=== PATIENT | female | born 1940 | race Caucasian/White ===

== ENCOUNTER 2017-06-09 08:00 | Inpatient (IN) | payer OTHER ==
[2017-06-13] MEDS ORDERED: CELECOXIB 200 MG CAPSULE PO ONE (09:15)
[2017-06-13] MEDS ORDERED: TRANEXAMIC ACID 1000 MG/10 ML VIAL IVPUSH ONE (09:15)
[2017-06-13] MEDS ORDERED: CEFAZOLIN 1 GM/D5W 50 ML IVPB ONE (09:15)
[2017-06-13] MEDS ORDERED: ROPIVICAINE 0.2%/MORPH PF/KETOROLAC - 51ML DISP.SYRINGE IA ONE ×2 (09:15→13:22)
[2017-06-13] MEDS ORDERED: GABAPENTIN 300 MG CAPSULE (FP) PO ONE (09:15)
[2017-06-13] MEDS ORDERED: PANTOPRAZOLE 40 MG TABLET (FP) PO ONE (09:15)
[2017-06-13] MEDS ORDERED: oxyCODONE HCL 10 MG SUSTAINED ACTING TABLET PO ONE (09:15)
[2017-06-13 10:05] VITALS: BMI 22.6
[2017-06-13] MEDS ORDERED: MIDAZOLAM HCL 2 MG/2 ML SINGLE DOSE VIAL ONE ×3 (11:53→13:46)
[2017-06-13] MEDS ORDERED: ROPIVACAINE HCL 0.5% 30ML VIAL ONE (11:54)
[2017-06-13] MEDS ORDERED: DEXAMETHASONE SOD PHOSPHATE/PF 10 MG/ML SDV ONE (11:54)
[2017-06-13] MEDS ORDERED: BUPIVACAINE HCL/PF 0.5% (5MG/ML) 10 ML VIAL ONE (12:55)
[2017-06-13] MEDS ORDERED: SUCCINYLCHOLINE CHLORIDE 200 MG/10 ML VIAL ONE (12:59)
[2017-06-13] MEDS ORDERED: VANCOMYCIN 1,000 MG VIAL (RESTRICTED TO ID ONLY) ONE (13:22)
[2017-06-13] MEDS ORDERED: TRANEXAMIC ACID 1000 MG/10 ML VIAL ONE ×2 (13:22→15:55)
[2017-06-13] MEDS ORDERED: ceFAZolin SODIUM 1 GM VIAL ONE ×2 (13:40→15:20)
[2017-06-13] MEDS ORDERED: ONDANSETRON 4 MG/2 ML VIAL ONE (16:30)
[2017-06-13] MEDS ORDERED: oxyCODONE HCL 5 MG TABLET PO PRN ×2 (16:45→17:01)
[2017-06-13] MEDS ORDERED: ONDANSETRON 4 MG/2 ML VIAL IVPUSH PRN (16:45)
[2017-06-13] MEDS ORDERED: LACTATED RINGERS SOLUTION 1,000 ML IV SCH ×2 (16:45→17:00)
--- NOTE | 2017-06-13 16:45 | HP ---
Admitting History and Physical - Admission Chief Complaint: left knee OA History of Present Illness: 76yo female with severe left knee OA. Failed conservative mgmt. Here for elective TKA - Past Medical History Cardiovascular: Yes: HTN ...: No - Smoking History Smoking history: Former smoker Have you smoked in the past 12 months: No If you are a former smoker, when did you quit?: 1989 - Alcohol/Substance Use Hx Alcohol Use: Yes (GLASS WINE DAILY) Home Medications - Allergies Allergies/Adverse Reactions: Allergies Allergy/AdvReac Type Severity Reaction Status Date / Time Penicillins Allergy Severe Rash Verified 06/01/17 12:04 - Home Medications Home Medications: Ambulatory Orders Aspirin [Aspirin EC] 81 mg PO DAILY 06/01/17 Diltiazem HCl [Diltiazem 24Hr Cd] 120 mg PO HS 06/01/17 Hydrochlorothiazide [Hctz -] 12.5 mg PO DAILY 06/01/17 Umeclidinium [place] [Incruse Ellipta] 62.5 mcg IH DAILY 06/01/17 Physical Examination Vital Signs: Vital Signs Temperature 98.1 F 06/13/17 09:55 Pulse Rate 80 06/13/17 09:55 Respiratory Rate 20 06/13/17 09:55 Blood Pressure 159/99 06/13/17 09:55 O2 Sat by Pulse Oximetry (%) Constitutional: Yes: Well Nourished, No Distress Eyes: Yes: WNL, Conjunctiva Clear, EOM Intact HENT: Yes: WNL, Atraumatic, Normocephalic Neck: Yes: WNL Cardiovascular: Yes: WNL, Regular Rate and Rhythm Respiratory: Yes: WNL, Regular Gastrointestinal: Yes: WNL, Soft ...Rectal Exam: Yes: Deferred Extremities: Yes: WNL Edema: No Peripheral Pulses WNL: Yes Integumentary: Yes: WNL Neurological: Yes: WNL, Alert, Oriented ...Motor Strength: WNL Psychiatric: Yes: WNL, Alert, Oriented Labs: Reviewed in chart Imaging - Results X-ray: Image Reviewed Problem List - Problems (1) Osteoarthritis of left knee Code(s): M17.12 - UNILATERAL PRIMARY OSTEOARTHRITIS, LEFT KNEE Qualifiers: Osteoarthritis type: primary Qualified Code(s): M17.12 - Unilateral primary osteoarthritis, left knee; M17.12 - Unilateral primary osteoarthritis, left knee Assessment/Plan 76yo F with severe left knee OA for L TKA
[2017-06-13] MEDS: ACETAMINOPHEN 1000 MG/100 ML VIAL (NON FORMULARY) IVPB ONE (16:46)
--- NOTE | 2017-06-13 16:46 | OP ---
Operative Note - Note: Operative Date: 06/13/17 Pre-Operative Diagnosis: left knee OA Operation: left TKA Post-Operative Diagnosis: Same as Pre-op Surgeon: Angel Mahoney Wash Driller Helper: Oliver Stack Anesthesia: Spinal Estimated Blood Loss (mls): 100
[2017-06-13] MEDS ORDERED: ONDANSETRON 4 MG/2 ML VIAL IVPB PRN (16:48)
[2017-06-13] MEDS ORDERED: MAGNESIUM HYDROX 2400MG/30ML ORAL SUSPENSION 30 ML CUP PO PRN (16:48)
[2017-06-13] MEDS ORDERED: ACETAMINOPHEN INJECTION 100 ML IVPB ONE (17:00)
[2017-06-13] MEDS ORDERED: traMADol HCL 50 MG TABLET ONE (17:16)
[2017-06-13] MEDS ORDERED: KETOROLAC TROMETHAMINE 30 MG/1 ML VIAL ONE (17:17)
[2017-06-13] MEDS: traMADol HCL 50 MG TABLET PO SCH ×2 (17:19→22:45)
[2017-06-13] MEDS ORDERED: CEFAZOLIN 1 GM/D5W 50 ML IVPB SCH (18:00)
[2017-06-13] MEDS: SENNOSIDES/DOCUSATE COMBO (SENNA PLUS) TABLET (UD) PO SCH (21:56)
[2017-06-13] MEDS: ASCORBIC ACID 500 MG TABLET (FP) PO SCH (21:57)
[2017-06-13] MEDS: GABAPENTIN 300 MG CAPSULE (FP) PO SCH (21:57)
[2017-06-13] MEDS: ACETAMINOPHEN 325 MG TABLET (FP) PO SCH (21:57)
[2017-06-13] MEDS: oxyCODONE HCL 10 MG SUSTAINED ACTING TABLET PO SCH (21:59)
[2017-06-13] MEDS: KETOROLAC TROMETHAMINE 30 MG/1 ML VIAL IVPUSH SCH (22:44)
[2017-06-14] MEDS ORDERED: DEXAMETHASONE SOD PHOSPHATE 10 MG/1 ML VIAL IVPB ONE (01:00)
[2017-06-14] MEDS: KETOROLAC TROMETHAMINE 30 MG/1 ML VIAL IVPUSH SCH ×2 (06:20→11:27)
[2017-06-14] MEDS: traMADol HCL 50 MG TABLET PO SCH ×4 (06:20→23:34)
[2017-06-14] MEDS: ACETAMINOPHEN 325 MG TABLET (FP) PO SCH ×4 (06:21→23:35)
[2017-06-14 07:41] LABS: MCH 30.8 pg (25.7-33.7); MCHC 33.5 g/dl (32.0-36.0); MEAN CELL VOLUME 91.7 fl (80-96); MEAN PLT VOLUME 8.6 fl (7.5-11.1); PLATELET COUNT 245 K/MM3 (134-434); RDW 13.8 % (11.6-15.6); WHITE BLOOD COUNT 9.9 K/mm3 (4.0-10.8)
[2017-06-14 08:00] LABS: ANION GAP 9 (8-16); CALCIUM 9.6 mg/dl (8.4-10.2); CO2 28 mmol/L (22-28); CREATININE 0.9 mg/dl (0.6-1.3); GLUCOSE,RANDOM 148 mg/dl (74-106)
[2017-06-14] MEDS: ACETAMINOPHEN 1000 MG/100 ML VIAL (NON FORMULARY) IVPB ONE (08:22)
[2017-06-14] MEDS: ASPIRIN 325 MG TABLET PO SCH (08:59)
[2017-06-14] MEDS: PANTOPRAZOLE 40 MG TABLET (FP) PO SCH (09:04)
[2017-06-14] MEDS: SENNOSIDES/DOCUSATE COMBO (SENNA PLUS) TABLET (UD) PO SCH ×2 (09:04→21:15)
[2017-06-14] MEDS: oxyCODONE HCL 10 MG SUSTAINED ACTING TABLET PO SCH ×2 (09:04→21:15)
[2017-06-14] MEDS: GABAPENTIN 300 MG CAPSULE (FP) PO SCH ×2 (09:05→21:15)
[2017-06-14] MEDS: MULTIVITAMINS (DAILY MVI) TABLET (FP) PO SCH (09:05)
[2017-06-14] MEDS: HYDROCHLOROTHIAZIDE 12.5 MG CAPSULE (FP) PO SCH (09:05)
[2017-06-14] MEDS: CELECOXIB 200 MG CAPSULE PO SCH ×2 (09:05→21:16)
[2017-06-14] MEDS: ASCORBIC ACID 500 MG TABLET (FP) PO SCH ×2 (09:05→21:17)
[2017-06-14] MEDS ORDERED: PATIENT'S OWN MEDICATION (NON-FORMULARY) (Umeclidinium Bromide [Incruse Ellipta] 62.5 MCG) IH SCH (10:00)
--- NOTE | 2017-06-14 18:08 | PN ---
Progress Note (short form) - Note Progress Note: Pt seen and examined. Doing well. AVSS Selected Entries 06/14/17 06/14/17 06:00 07:52 Temperature 98 F Pulse Rate 71 Respiratory 18 Rate Blood Pressure 115/78 O2 Sat by Pulse 96 Oximetry (%) Oxygen Delivery Room Air Method Laboratory Tests 06/14/17 06/14/17 07:20 07:20 WBC 9.9 Hgb 14.4 Hct 42.8 Plt Count 245 Sodium 135 L Potassium 3.8 Chloride 98 Carbon Dioxide 28 Anion Gap 9 BUN 22 H Creatinine 0.9 Random Glucose 148 H Calcium 9.6 Gen: NAD LLE: c/d/i, NVID A/P 76yo female POD#1 s/p L TKA 1. PT/OOB 2. Plan for d/c home tomorrow. Problem List - Problems (1) Osteoarthritis of left knee Code(s): M17.12 - UNILATERAL PRIMARY OSTEOARTHRITIS, LEFT KNEE Qualifiers: Osteoarthritis type: primary Qualified Code(s): M17.12 - Unilateral primary osteoarthritis, left knee; M17.12 - Unilateral primary osteoarthritis, left knee
[2017-06-14] MEDS: MAG HYDROX/AL HYDROX/SIMETH 30 ML UNIT-DOSE CUP PO PRN (21:42)
[2017-06-15] MEDS: ACETAMINOPHEN 325 MG TABLET (FP) PO SCH ×4 (05:00→23:24)
[2017-06-15] MEDS: traMADol HCL 50 MG TABLET PO SCH ×5 (05:42→23:37)
[2017-06-15] MEDS: ASPIRIN 325 MG TABLET PO SCH (08:17)
[2017-06-15 08:28] LABS: MCH 31.1 pg (25.7-33.7); MCHC 33.8 g/dl (32.0-36.0); MEAN CELL VOLUME 92.1 fl (80-96); MEAN PLT VOLUME 8.6 fl (7.5-11.1); PLATELET COUNT 257 K/MM3 (134-434); RDW 13.4 % (11.6-15.6); WHITE BLOOD COUNT 15.6 K/mm3 (4.0-10.8)
[2017-06-15 09:02] LABS: ANION GAP 10 (8-16); CALCIUM 9.4 mg/dl (8.4-10.2); CO2 27 mmol/L (22-28); CREATININE 1.3 mg/dl (0.6-1.3); GLUCOSE,RANDOM 111 mg/dl (74-106)
[2017-06-15] MEDS ORDERED: PT OWN MED DRAWER 7, Y5N ONE (10:51)
[2017-06-15] MEDS: oxyCODONE HCL 10 MG SUSTAINED ACTING TABLET PO SCH ×2 (11:00→22:00)
[2017-06-15] MEDS: TIOTROPIUM BROMIDE 18 MCG/INH (DEVICE W/ 5 CAPSULES) IH SCH (11:00)
[2017-06-15] MEDS: SENNOSIDES/DOCUSATE COMBO (SENNA PLUS) TABLET (UD) PO SCH ×2 (11:00→22:05)
[2017-06-15] MEDS: PANTOPRAZOLE 40 MG TABLET (FP) PO SCH (11:00)
[2017-06-15] MEDS: GABAPENTIN 300 MG CAPSULE (FP) PO SCH ×2 (11:19→22:04)
[2017-06-15] MEDS: HYDROCHLOROTHIAZIDE 12.5 MG CAPSULE (FP) PO SCH (11:20)
[2017-06-15] MEDS: CELECOXIB 200 MG CAPSULE PO SCH ×3 (11:20→23:59)
[2017-06-15] MEDS: MULTIVITAMINS (DAILY MVI) TABLET (FP) PO SCH (11:21)
[2017-06-15] MEDS: ASCORBIC ACID 500 MG TABLET (FP) PO SCH ×2 (11:21→22:05)
--- NOTE | 2017-06-15 16:02 | PATH ---
Surgical Pathology Report Patient Name: VIANEY CHENG Med. Rec. #: [id number] /Age/Gender: 1940 (Age: 76) / F Account: [id number] Location: [facility] MED-SURG Taken: 06/14/2017 Received: 06/14/2017 Reported: 06/15/2017 Physicians: Angel Mahoney M.D. Specimen(s) Received BONE LEFT KNEE Clinical History Left knee osteoarthritis Final Diagnosis BONE, LEFT KNEE, TOTAL KNEE REPLACEMENT: DEGENERATIVE JOINT DISEASE. Electronically Signed Brenda Castillo M.D. Gross Description Received in formalin labeled "bone left knee," is a 10.5 x 9.5 x 2.0 cm aggregate of multiple tobar, irregular portions of bone and soft tissue. The tibial plateau measures 7.5 x 5.0 x 1.3 cm. There is a 3.3 cm greatest dimension area of eburnation present. The remaining articular surfaces are tobar-yellow and focally granular. The underlying trabecular bone is yellow and hard. Refinery Operator Alkylation sections are submitted in one cassette, following decalcification. /06/14/2017 [facility]06/14/2017
[2017-06-15] MEDS: MAG HYDROX/AL HYDROX/SIMETH 30 ML UNIT-DOSE CUP PO PRN (17:00)
[2017-06-15 18:12] LABS: CPK 195 IU/L (26-192)
[2017-06-15 18:41] LABS: TROPONIN I (DFP) < 0.03 ng/ml (0.03-0.50)
[2017-06-15] MEDS ORDERED: PANTOPRAZOLE SODIUM 40 MG in SODIUM CHLORIDE 100 ML IVPB ONE (19:09)
[2017-06-15] MEDS ORDERED: PANTOPRAZOLE SODIUM 100 ML IVPB ONE (19:45)
--- NOTE | 2017-06-15 23:35 | PN ---
Progress Note (short form) - Note Progress Note: Pt seen and examined. Events noted. Doing well. Seems like heartburn and not any cardiac condition. AVSS Selected Entries 06/14/17 06/14/17 06:00 07:52 Temperature 98 F Pulse Rate 71 Respiratory 18 Rate Blood Pressure 115/78 O2 Sat by Pulse 96 Oximetry (%) Oxygen Delivery Room Air Method Laboratory Tests 06/14/17 06/14/17 07:20 07:20 WBC 9.9 Hgb 14.4 Hct 42.8 Plt Count 245 Sodium 135 L Potassium 3.8 Chloride 98 Carbon Dioxide 28 Anion Gap 9 BUN 22 H Creatinine 0.9 Random Glucose 148 H Calcium 9.6 Gen: NAD LLE: c/d/i, NVID A/P 76yo female POD#2 s/p L TKA 1. PT/OOB 2. 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 We discussed that SNF would be safer for her, for a few days, and she agrees. She wishes to go to [facility] if there are beds available. Problem List - Problems (1) Osteoarthritis of left knee Code(s): M17.12 - UNILATERAL PRIMARY OSTEOARTHRITIS, LEFT KNEE Qualifiers: Osteoarthritis type: primary Qualified Code(s): M17.12 - Unilateral primary osteoarthritis, left knee; M17.12 - Unilateral primary osteoarthritis, left knee
[2017-06-16] MEDS: ACETAMINOPHEN 325 MG TABLET (FP) PO SCH ×2 (04:46→11:00)
[2017-06-16] MEDS: traMADol HCL 50 MG TABLET PO SCH ×2 (04:46→12:14)
--- NOTE | 2017-06-16 07:22 | CONSULT ---
Consultation: REQUESTING PROVIDER: Denzel CONSULT REQUEST: We have been asked to medically evaluate this patient for GERD. HISTORY OF PRESENT ILLNESS:Patient is a 76y/o female with a past medical history of NIDDM, HTN, and COPD. Patient is s/p left TKR, 06/13/17, Dr Mahoney. REVIEW OF SYSTEMS: CONSTITUTIONAL: Absent: fever, chills, diaphoresis, generalized weakness, malaise, loss of appetite, weight change HEENT: Absent: rhinorrhea, nasal congestion, throat pain, throat swelling, difficulty swallowing, mouth swelling, ear pain, eye pain, visual changes CARDIOVASCULAR: Absent: chest pain, syncope, palpitations, irregular heart rate, lightheadedness , peripheral edema RESPIRATORY: Absent: cough, shortness of breath, dyspnea with exertion, orthopnea, wheezing, stridor, hemoptysis GASTROINTESTINAL: Absent: abdominal pain, abdominal distension, nausea, vomiting, diarrhea, constipation, melena, hematochezia GENITOURINARY: Absent: dysuria, frequency, urgency, hesitancy, hematuria, flank pain, genital pain MUSCULOSKELETAL: Absent: myalgia, arthralgia, joint swelling, back pain, neck pain SKIN: Absent: rash, itching, pallor HEMATOLOGIC/IMMUNOLOGIC: Absent: easy bleeding, easy bruising, lymphadenopathy, frequent infections ENDOCRINE: Absent: unexplained weight gain, unexplained weight loss, heat intolerance, cold intolerance NEUROLOGIC: Absent: headache, focal weakness or paresthesias, dizziness, unsteady gait, seizure, mental status changes, bladder or bowel incontinence PSYCHIATRIC: Absent: anxiety, depression, suicidal or homicidal ideation, hallucinations. PHYSICAL EXAMINATION Vital Signs - 24 hr 06/15/17 06/15/17 06/15/17 08:24 10:00 14:00 Temperature 97.7 F Pulse Rate 68 84 Respiratory 18 18 17 Rate Blood Pressure 119/72 133/84 O2 Sat by Pulse 95 95 Oximetry (%) 06/15/17 06/15/17 06/15/17 18:00 18:33 22:00 Temperature 97.7 F 97.7 F Pulse Rate 80 72 95 H Respiratory 17 16 18 Rate Blood Pressure 128/80 120/70 125/67 O2 Sat by Pulse 97 95 Oximetry (%) 06/16/17 06/16/17 06/16/17 02:00 02:02 05:28 Temperature 97.9 F 97.6 F Pulse Rate 86 89 Respiratory 18 19 Rate Blood Pressure 99/51 104/53 O2 Sat by Pulse 96 95 Oximetry (%) GENERAL: Awake, alert, and fully oriented, in no acute distress. HEAD: Normal with no signs of trauma. EYES: Pupils equal, round and reactive to light, extraocular movements intact, sclera anicteric, conjunctiva clear. No lid lag. EARS, NOSE, THROAT: Ears normal, nares patent, oropharynx clear without exudates. Moist mucous membranes. NECK: Normal range of motion, supple without lymphadenopathy, JVD, or masses. LUNGS: Breath sounds equal, clear to auscultation bilaterally. No wheezes, and no crackles. No accessory muscle use. HEART: Regular rate and rhythm, normal S1 and S2 without murmur, rub or gallop. ABDOMEN: Soft, nontender, not distended, normoactive bowel sounds, no guarding, no rebound, no masses. No hepatomegaly or splenomegaly. MUSCULOSKELETAL: Normal range of motion at all joints. No bony deformities or tenderness. No CVA tenderness. UPPER EXTREMITIES: 2+ pulses, warm, well-perfused. No cyanosis. No clubbing. Cap refill <2 seconds. No peripheral edema. LOWER EXTREMITIES: 2+ pulses, warm, well-perfused. No calf tenderness. No peripheral edema. LEFT LOWER EXTREMITY: aguacel dressing intact, less than 3 second capillary refill, + 3 pedal pulse, SCD/JOSÉ ANTONIO NEUROLOGICAL: Cranial nerves II-XII intact. Normal speech. Normal gait. PSYCHIATRIC: Cooperative. Good eye contact. Appropriate mood and affect. SKIN: Warm, dry, normal turgor, no rashes or lesions noted. Laboratory Results - last 24 hr 06/15/17 06/15/17 06/15/17 07:00 07:00 17:45 WBC 15.6 H D RBC 4.36 Hgb 13.6 Hct 40.1 MCV 92.1 MCH 31.1 MCHC 33.8 RDW 13.4 Plt Count 257 MPV 8.6 Sodium 131 L Potassium 3.8 Chloride 94 L Carbon Dioxide 27 Anion Gap 10 BUN 38 H D Creatinine 1.3 D Random Glucose 111 H D Calcium 9.4 Creatine Kinase 195 H Creatine Kinase Index 2.5 CK-MB (CK-2) 5.0 H Troponin I < 0.03 L Active Medications Generic Name Dose Route Start Last Admin Trade Name Freq PRN Reason Stop Dose Admin Acetaminophen 650 mg 06/13/17 16:45 06/16/17 04:46 Tylenol - PO 06/16/17 16:44 650 mg Q6H SHELTON Administration Al Hydroxide/Mg Hydroxide 30 ml 06/13/17 16:48 06/15/17 17:00 Mylanta Oral Suspension - PO 30 ml Q4H PRN Administration DYSPEPSIA Ascorbic Acid 500 mg 06/13/17 22:00 06/15/17 22:05 Vitamin C - PO Not Given BID SHELTON Aspirin 325 mg 06/14/17 08:00 06/15/17 08:17 Asa - PO 325 mg DAILY@0800 SHELTON Administration Celecoxib 200 mg 06/13/17 22:00 06/15/17 23:59 Celebrex - PO Not Given BID [facility] Diltiazem HCl 120 mg 06/13/17 22:00 06/15/17 21:59 Cardizem Cd - PO 120 mg HS SHELTON Administration Gabapentin 300 mg 06/13/17 22:00 06/15/17 22:04 Neurontin - PO 06/16/17 21:59 Not Given BID [facility] Hydrochlorothiazide 12.5 mg 06/14/17 10:00 06/15/17 11:20 Hctz - PO Not Given DAILY [facility] Lactated Ringer's 1,000 mls @ 75 mls/hr 06/13/17 16:45 06/14/17 08:22 Lactated Ringers Solution IV Not Given ASDIR SHELTON Magnesium Hydroxide 30 ml 06/13/17 16:48 Milk Of Magnesia - PO PRN PRN CONSTIPATION Multivitamins/Minerals/Vitamin C 1 tab 06/14/17 10:00 06/15/17 11:21 Tab-A-Vit - PO Not Given DAILY [facility] Ondansetron HCl 4 mg 06/13/17 16:48 06/15/17 11:11 Zofran Injection IVPB 4 mg Q6H PRN Administration NAUSEA Oxycodone HCl 5 mg 06/13/17 16:45 Roxicodone - PO 06/16/17 16:47 Q4H PRN PAIN Oxycodone HCl 10 mg 06/13/17 22:00 06/15/17 22:00 Oxycontin - PO Not Given BID [facility] Oxycodone HCl 10 mg 06/13/17 17:01 Roxicodone - PO 06/16/17 17:01 Q4H PRN PAIN LEVEL 6-10 Pantoprazole Sodium 40 mg 06/14/17 10:00 06/15/17 11:00 Protonix - PO 40 mg DAILY SHELTON Administration Senna/Docusate Sodium 2 tablet 06/13/17 22:00 06/15/17 22:05 Pericolace - PO Not Given BID SHELTON Tiotropium [place] 1 puff 06/15/17 10:00 06/15/17 11:00 Spiriva - IH 1 puff DAILY SHELTON Administration Tramadol HCl 50 mg 06/13/17 17:00 06/16/17 04:46 Ultram - PO 50 mg Q6H SHELTON Administration ASSESSMENT/PLAN: 1) ortho left knee TKR - post op day 2 - prn pain medication - PT as per orthopedist - incentive spirometer 2) GI - reports a burning sensation due chest after drinking juice, reports improvement after starting protonix, carafate ordered - consider holding celebrx 3) card hypertension - continue cardizem - recommend hold hctz due to hyponateremia - b/p at goal - troponin wnl, pain less likely cardiac in orgin, most likely GERD 4) pulm copd - no acute excerbation at this time, continue spiriva - incentive spirometer f/e/n - recommend bland diet Dispo: We will continue to follow the patient. Thank you for this consultative opportunity. Visit type - Emergency Visit Emergency Visit: Yes ED Registration Date: 06/13/17 Care time: The patient presented to the Emergency Department on the above date and was hospitalized for further evaluation of their emergent condition. - New Patient This patient is new to me today: No - Critical Care Critical Care patient: No
[2017-06-16] MEDS: ASPIRIN 325 MG TABLET PO SCH (08:30)
[2017-06-16] MEDS: HYDROCHLOROTHIAZIDE 12.5 MG CAPSULE (FP) PO SCH (09:14)
[2017-06-16] MEDS: GABAPENTIN 300 MG CAPSULE (FP) PO SCH (09:15)
[2017-06-16] MEDS: CELECOXIB 200 MG CAPSULE PO SCH (09:15)
[2017-06-16] MEDS: MULTIVITAMINS (DAILY MVI) TABLET (FP) PO SCH (09:15)
[2017-06-16] MEDS: PANTOPRAZOLE 40 MG TABLET (FP) PO SCH (09:16)
[2017-06-16] MEDS: SENNOSIDES/DOCUSATE COMBO (SENNA PLUS) TABLET (UD) PO SCH (09:16)
[2017-06-16] MEDS: oxyCODONE HCL 10 MG SUSTAINED ACTING TABLET PO SCH (09:16)
[2017-06-16] MEDS: ASCORBIC ACID 500 MG TABLET (FP) PO SCH (09:16)
[2017-06-16] MEDS: TIOTROPIUM BROMIDE 18 MCG/INH (DEVICE W/ 5 CAPSULES) IH SCH (09:16)
[2017-06-16] MEDS ORDERED: SUCRALFATE 1 GM/10 ML UNIT DOSE CUPS PO SCH (10:00)
--- NOTE | 2017-06-16 11:56 | EKG ---
Test Reason : Blood Pressure : / mmHG Vent. Rate : 073 BPM Atrial Rate : 073 BPM P-R Int : 000 ms QRS Dur : 094 ms QT Int : 388 ms P-R-T Axes : 000 -44 037 degrees QTc Int : 427 ms SINUS RHYTHM WITH MARKED SINUS ARRHYTHMIA LEFT AXIS DEVIATION INCOMPLETE RIGHT BUNDLE BRANCH BLOCK ABNORMAL ECG NO PREVIOUS ECGS AVAILABLE Confirmed by JEANNA PALAFOX MD ([id number]) on 06/16/2017 11:55:41 AM Referred By: Angel Mahoney Confirmed By:JEANNA PALAFOX MD
--- NOTE | 2017-06-16 14:05 | DS ---
Physical Examination Vital Signs: Vital Signs Temperature 97.6 F 06/16/17 05:28 Pulse Rate 89 06/16/17 05:28 Respiratory Rate 19 06/16/17 05:28 Blood Pressure 104/53 06/16/17 05:28 O2 Sat by Pulse Oximetry (%) 95 06/16/17 07:40 Labs: CBC, BMP 06/15/17 07:00 06/15/17 07:00 Discharge Summary Reason For Visit: LEFT KNEE OSTEOARTHRITIS Current Active Problems Osteoarthritis of left knee (Acute) Procedures: Principal: left TKA Hospital Course: Admitted for elective surgery. Procedure performed without complications. Pt received postoperative antibiotic prophylaxis and DVT ppx. Ambulated with physical therapy. Stable for discharge home with outpatient followup. Condition: Stable - Instructions Diet, Activity, Other Instructions: Dr. Mahoney - Knee Replacement Instructions Keep the Aquacel dressing on until removed by Dr. Mahoney in 10-14 days - it is antibacterial and waterproof and you can shower with it on. Call the office for a follow-up appointment with Dr. Mahoney in 10-14 days. Take one Aspirin 325mg daily for 6 weeks to prevent blood clots in your legs. Take one Pantoprazole 40mg daily for 6 weeks to protect against heartburn and ulcers. Take a multivitamin, extra vitamin C supplement, and stool softener daily. For pain: *Mild pain (1-3/10): Take 1 Tramadol tablet every 4 hours as needed. Moderate pain (4-6/10): Take 1 Tramadol tablet and 1 Percocet tablet every 4 hours as needed. Severe pain (7-10/10): Take 1 Tramadol tablet and 2 Percocet tablets every 4 hours as needed. Activity: You can put as much weight on the operative leg as you want. Right after you get home, there will be a physical therapist coming to your house to help you walk around and bend/straighten your knee. After your follow-up appointment, you will be sent for more intensive outpatient physical therapy which will include machines and equipment that the home therapist cannot bring to your house. Always use a walker or cane for balance and to prevent falls. Disposition: LONG-TERM FACILITY - Home Medications Comprehensive Discharge Medication List: Ambulatory Orders Diltiazem HCl [Diltiazem 24Hr Cd] 120 mg PO HS 06/01/17 Hydrochlorothiazide [Hctz -] 12.5 mg PO DAILY 06/01/17 Umeclidinium [place] [Incruse Ellipta] 62.5 mcg IH DAILY 06/01/17 Ascorbic Acid [Vitamin C -] 500 mg PO BID tablet 06/16/17 Aspirin [ASA -] 325 mg PO DAILY@0800 #40 tablet 06/16/17 Multivitamins [Multivit ([facility] Formul[facility])] 1 tab PO DAILY tab 06/16/17 Oxycodone HCl/Acetaminophen [Percocet 5-325 mg Tablet] 1 - 2 tab PO Q4H PRN #60 tablet MDD 8 06/16/17 Pantoprazole Sodium [Protonix -] 40 mg PO DAILY #40 tab 06/16/17 Sennosides/Docusate Sodium [Pericolace -] 2 tablet PO BID tablet 06/16/17 Tramadol HCl [Ultram -] 50 mg PO Q4H PRN #90 tablet MDD 8 06/16/17
[2017-06-16 14:21] VITALS: BP 95/56; PULSE 80; TEMP 97.7
--- NOTE | 2017-06-21 10:10 | SPEC ---
DATE OF OPERATION: 06/13/2017 PREOPERATIVE DIAGNOSIS: Left knee osteoarthritis. POSTOPERATIVE DIAGNOSIS: Left knee osteoarthritis. PROCEDURE: Left total knee replacement. ATTENDING: Nikky Hernandez MD LINING MARKER: TRUE Plummer ANESTHESIA: Spinal plus sedation. ESTIMATED BLOOD LOSS: 100 mL COMPLICATIONS: None. SPECIMENS: Resected bone was sent for pathological analysis. DISPOSITION: The patient was sent to PACU in stable condition. INDICATIONS: This is a 76-year-old female who presented to the office complaining of severe left knee pain. She was seen and examined by Dr. Hernandez and diagnosed with severe left knee osteoarthritis. She was initially treated conservatively with injections and medications and physical therapy but continued to have severe left knee pain and ambulatory dysfunction. She was felt indicated for a left total knee replacement. The risks, benefits, and alternatives to the surgery were explained to the patient in great detail, and she elected to proceed with the surgery. DESCRIPTION OF PROCEDURE: On the day of surgery, the patient was taken to the operating room and placed on the OR table. Spinal anesthesia was administered by the anesthesiologist. The patient was then positioned supine on the table and all bony prominences were padded. A nonsterile tourniquet was placed on the proximal thigh. The knee was then prepped and draped in the usual sterile fashion and intravenous antibiotics were given for infection prophylaxis. A surgical time-out was then performed with the team, and the patients identity, procedure, side, availability of implants, and the administration of antibiotics was confirmed. The leg was then elevated and exsanguinated, and the tourniquet was inflated. With the knee flexed, a midline incision was made and carried down through the subcutaneous fat to the underlying retinaculum. A medial parapatellar arthrotomy was performed. This was followed by a subperiosteal dissection of the tissue off the proximal, medial tibia. A portion of fat pad was removed from under the patellar tendon, and a small portion of fat was excised off the distal supracondylar femur. The knee was then flexed further and the anterior horn of the lateral meniscus was released from the midline. Next, the anterior and posterior cruciate ligaments were transected. Osteophytes were removed from both the femur and tibia. Grade 4 changes were noted diffusely throughout the knee. Hohmann retractors were then placed around the distal femur. The starting drill was used to enter the intramedullary canal. The starting point had been chosen by checking the radiographs and anatomy. Proper alignment and intramedullary placement was then confirmed by placing the long narrow yohannes into the femur. Next, the distal femoral cutting guide was adjusted to 6 degrees of valgus and pinned to the femur. The bone resection was assessed using an aubrey-wing. An approximately 10mm distal cut was made and the cut pieces measured. Once this was complete, the sizing guide was used to determine which size femoral component should be used. Next, the appropriately sized 4-in-1 cutting block was then placed at the correct amount of external rotation and the aubrey wing was used to assure that there would be no notching of the anterior cortex of the femur. Once this was done, Hohmann retractors were used to protect the medial and lateral collateral ligaments, and all appropriate bone cuts were made. Attention was then turned to the tibia. Hohmann retractors were used to translate the tibia anteriorly and protect the collateral ligaments. The medial and lateral menisci were removed. The extramedullary tibial alignment guide was then placed and adjusted for rotation, varus/valgus, and slope. The height of the cutting block was adjusted to the level of the desired bone resection and then pinned in place. The proximal tibia was then cut with a saw and the bone was removed and measured. Once this was completed, trial components were placed and the knee was taken through a full range of motion. Soft tissue balance was assessed in both flexion and extension and found to be appropriate. The knee was stable throughout the full range of motion. The knee was then put into extension and the patella everted. The synovium around the patella was circumscribed with electrocautery. A caliper was used to measure the patellar thickness and a saw was then used to resect the patella at the chondro-osseous junction. The cut surface was then sized and drilled for the appropriate patellar button, with care taken to medialize it. A trial patella was then placed and the knee was again taken through a full range of motion. The knee was found to have both good balance and good patellar tracking. All of the components were removed except the tibial base plate. The appropriate instrumentation was used to drill and punch the proximal tibia for the keel of the final component. All bony surfaces were then cleaned with pulsatile lavage and dried. Bone cement was then prepared on the back table, and final components were cemented in place in the usual fashion. Extruded cement was removed. The polyethylene trial was placed, the knee was put into extension, and axial pressure was applied for compression while the cement hardened. The patellar button was similarly cemented into place. Once the cement had hardened, the knee was taken through a full range of motion to assess stability, balance, and patellar tracking. This was found to be optimal and the trial polyethylene was exchanged for the appropriately sized real implant. The wound was then thoroughly irrigated with normal saline. No. 1 Polysorb and 0 VLoc 180 barbed sutures were used to close the arthrotomy. No. 1 Polysorb and 2-0 Polysorb sutures were used in the subcutaneous tissues. The skin was closed using both 3-0 VLoc 90 suture in a running subcuticular fashion and SwiftSet skin adhesive. Once this was completed a sterile Aquacel dressing and compressive Humberto-wrap was applied. The tourniquet was then deflated and the patient was awakened and taken to the PACU in stable condition. ADDENDUM: After final components were placed, a 3-minute dilute Betadine lavage was performed according to the BOVEY protocol. Following this, the wound was again thoroughly irrigated with normal saline via pulsatile lavage, and wound closure was begun. NIKKY HERNANDEZ M.D.ctatorName1 [id number]
== END 2017-06-16 14:51 | DRG 470 ==
LOC: FM/S 06-13 08:27
PROVIDERS: ADMIT Student in an Organized Health Care Education/Training Program; ATTEND Student in an Organized Health Care Education/Training Program
PROC: 0SRD0J9 Replacement of Left Knee Joint with Synthetic Substitute, Cemented, Open Approach (ICD-10-PCS; principal; 2017-06-13 14:18)
DX: M17.12 Unilateral primary osteoarthritis, left knee (principal); I10 Essential (primary) hypertension; Z87.891 Personal history of nicotine dependence
CPT/HCPCS: 36415; 73560-TC-LT; 80048; 82550; 82553; 84484; 85027; 88304-TC; 88311-TC; 93005; 94010; 94760; 97116-GP; 97162-GP